=== PATIENT | male | born 1960 | race Caucasian/White ===

== ENCOUNTER 2019-06-12 09:05 | Emergency (ER) | payer OTHER ==
[~2019-06-12] VITALS: Ht 177.8 cm; Wt 79.4 kg
[~2019-06-12 09:05] MED LIST: ATOR20TA PO; GUAI120L35 PO
--- NOTE | 2019-06-12 09:39 | PHYS DOC ---
Past History Past Medical History: No Pertinent History Past Surgical History: No Surgical History Alcohol Use: Occasionally Drug Use: None Adult General Chief Complaint Chief Complaint: PAIN ON URINATION [facility] HPI Patient is a 58-year-old male who presents with complaint of feelings of incomplete emptying of his bladder. Patient states symptoms have been present for about the last week. He denies any actual discomfort with urination and denies any penile discharge. He does indicate that he has a history of BPH and is taking Flomax. Patient does admit that he recently started a relationship with a new female and states that he has had unprotected intercourse. He states that he does not think that he has anything to worry about regarding STDs but would like to be checked.[] Review of Systems Review of Systems Constitutional: Denies fever or chills [] Respiratory: Denies cough or shortness of breath [] Cardiovascular: No additional information not addressed in HPI [] : Denies dysuria or hematuria [] Musculoskeletal: Denies back pain or joint pain [] Current Medications Current Medications Current Medications Medications (Trade) Dose Ordered Sig/Al Start Time Stop Time Status Last Admin Dose Admin Azithromycin (Zithromax) 1,000 mg 1X ONCE 06/12/19 10:00 06/12/19 10:01 Ceftriaxone Sodium (Rocephin Im) 250 mg 1X ONCE 06/12/19 10:00 06/12/19 10:01 Allergies Allergies Allergies Coded Allergies Type Severity Reaction Last Updated Verified No Known Allergies Allergy Unknown 06/23/16 Yes Physical Exam Physical Exam Constitutional: Well developed, well nourished, no acute distress, non-toxic appearance. [] Cardiovascular:Heart rate regular rhythm, no murmur [] Lungs & Thorax: Bilateral breath sounds clear to auscultation [] Abdomen: Bowel sounds normal, soft. [] Skin: Warm, dry, no erythema, no rash. [] EKG EKG [] Radiology/Procedures Radiology/Procedures [] Course & Med Decision Making Course & Med Decision Making Pertinent Labs and Imaging studies reviewed. (See chart for details) [] Dragon Disclaimer Dragon Disclaimer This electronic medical record was generated, in whole or in part, using a voice recognition dictation system. Departure Departure: Impression: Primary Impression: Incomplete emptying of bladder Disposition: HOME, SELF-CARE Condition: STABLE Referrals: TRESSA SMALL MD (PCP) Patient Instructions: Urinary Retention, Acute, Male GIGI HERNÁNDEZ Jr. DO Jun 12, 2019 09:39
[2019-06-12 09:48] LABS: BACTERIA,URINE 0 /HPF (0-FEW); BILIRUBIN,URINE NEG (NEG); CLARITY,URINE CLEAR; COLOR,URINE STRAW; GLUCOSE,URINE NEG (NEG); NITRITE,URINE NEG (NEG); RBC,URINE 0 /HPF (0-2); UROBILINOGEN,URINE 0.2 mg/dL (0.2 mg/dL); WBC,URINE 0 /HPF (0-4)
[2019-06-12] MEDS ORDERED: cefTRIAXone IM 250 MG VIAL IM ONE (10:00)
[2019-06-12] MEDS ORDERED: AZITHROMYCIN 250 MG TABLET. PO ONE (10:00)
[2019-06-12 10:20] VITALS: BP 161/96
== END 2019-06-12 10:41 | disposition home or self-care (01) ==
LOC: ER 09:05
DX: R39.14 Feeling of incomplete bladder emptying (principal); N40.0 Benign prostatic hyperplasia without lower urinary tract symptoms
CPT/HCPCS: 36415; 81001; 87491; 87591; 96372; 99284; J0456; J0696